=== PATIENT | female | born 1965 | race Caucasian/White ===

== ENCOUNTER → 2016-11-09 | Outpatient (CLI) | payer OTHER ==
--- NOTE | 2016-11-09 12:18 | MR ---
EXAMINATION TYPE: MR cervical spine wo con DATE OF EXAM: 11/09/2016 10:18 AM COMPARISON: 11/04/2014 HISTORY: cervicalgia Multiplanar MultiSpin echo imaging of the cervical spine was performed. Comparison: none C2-C3: No evidence for degenerative disc disease. No disc bulge/herniation or protrusion. No Canal stenosis. Foramina are patent bilaterally. C3-C4: No evidence for degenerative disc disease. No disc bulge/herniation or protrusion. No Canal stenosis. Foramina are patent bilaterally. C4-C5: Moderate disc desiccation noted. There is broad-based central disc protrusion or small herniat ion resultant compression of the thecal sac but no cord contact. There is mild canal stenosis and the re is mild left neural foraminal encroachment. C5-C6: Moderate to severe disc desiccation identified. Moderate disc bulging with encapsulating spur resulting in hard disc endplate complex. There is ventral CORD contact with moderate central stenosis . Bilateral foraminal encroachment left greater than right. C6-C7: Moderate disc desiccation noted. Mild subligamentous disc herniation effaces the ventral theca l sac. Borderline central stenosis noted. Bilateral left greater than right neural foraminal encroach ment. C7-T1: No evidence for degenerative disc disease. No disc bulge/herniation or protrusion. No Canal stenosis. Foramina are patent bilaterally. Cervical segments are intact. There is reversal of the normal cervical lordosis extending from C4 th rough C6 which can be seen with muscle spasticity. Mild increased signal within the cervical spinal c ord extending from C4 through C6 may reflect early compressive myelopathy. Craniovertebral junction r elationships are within normal limits. IMPRESSION: 1. Multilevel degenerative disc disease with disc bulging/herniation with encapsulating spur resultin g in multilevel central stenosis and foraminal encroachment. Early compressive myelopathy is not excl uded. Findings have progressed slightly in the interval.
== END | disposition home or self-care (01) ==
LOC: RADMRIMAIN 09:45
PROVIDERS: ATTEND Psychiatry & Neurology Neurology
DX: M50.30 Other cervical disc degeneration, unspecified cervical region (principal); M50.20 Other cervical disc displacement, unspecified cervical region; M48.02 Spinal stenosis, cervical region
CPT/HCPCS: 72141

== ENCOUNTER → 2016-11-10 | Outpatient (CLI) | payer OTHER ==
--- NOTE | 2016-11-10 10:44 | MR ---
EXAMINATION TYPE: MR lumbar spine wo con DATE OF EXAM: 11/10/2016 10:38 AM COMPARISON: NONE HISTORY: Lumbago TECHNIQUE: T1 and T2 axial and sagittal images of the lumbar spine are submitted. FINDINGS: There is no abnormal signal seen within the visualized spinal cord or paraspinal soft tissu es. Prominent extrarenal pelvis on the left. Cannot exclude a small gallstone. There is hypertrophic changes anteriorly at multiple levels. Mild disc desiccation at T12-L1 and L4-L5. At L1-2 there is no disc herniation or canal stenosis. No foraminal encroachment. At L2-3 there is facet arthropathy but no disc herniation or canal stenosis. No foraminal encroachmen t. At L3-4 there is moderate facet arthropathy with hypertrophic change of the ligamentum flavum. Mild c ircumferential disc bulging but no canal stenosis. Neural foramina remain patent. At L4-5 there is circumferential disc bulging with a more broad-based left paracentral and lateral pr otrusion with mild to moderate left foraminal encroachment and mild right foraminal encroachment. Lig amentum flavum hypertrophy and facet arthropathy contribute to mild to moderate canal stenosis. At L5-S1 there is no disc herniation or canal stenosis. Neural foramina patent. Facet arthropathy not ed. IMPRESSION: 1. At L4-5 there is circumferential disc bulging with a more broad-based left paracentral and lateral protrusion with mild to moderate left foraminal encroachment and mild right foraminal encroachment. Ligamentum flavum hypertrophy and facet arthropathy contribute to mild to moderate canal stenosis are a 2. Disc bulging facet arthropathy L3-4 with no canal stenosis or foraminal encroachment.
== END ==
LOC: RADMRIMAIN 09:47
PROVIDERS: ATTEND Psychiatry & Neurology Neurology
DX: M48.06 Spinal stenosis, lumbar region (principal); M99.73 Connective tissue and disc stenosis of intervertebral foramina of lumbar region; M51.26 Other intervertebral disc displacement, lumbar region; M46.86 Other specified inflammatory spondylopathies, lumbar region
CPT/HCPCS: 72148

== ENCOUNTER → 2017-11-30 | Outpatient (CLI) | payer OTHER ==
--- NOTE | 2017-11-30 15:25 | MR ---
"EXAMINATION TYPE: MR cervical spine wo con DATE OF EXAM: 11/30/2017 COMPARISON: NONE HISTORY: Cervicalgia TECHNIQUE: Multiplanar, multisequence images of the cervical spine were acquired. FINDINGS: There is grade 1 anterolisthesis of C3 on C4 and grade 1 retrolisthesis of C5 on C6. Additionally bon e marrow edema is noted within the C4 and C5 vertebral bodies with very minimal vertebral body height loss. Vertebral body height loss is estimated at less than 10% C4 and approximately 10% of C5. There is also grade 1 retrolisthesis of C6 on C7. Multilevel disc desiccation is seen. Posterior fossa is visualized portions is grossly unremarkable. C2-C3: There is a small central disc osteophyte complex without significant spinal canal stenosis or neural foraminal narrowing. C3-C4: There is a small central and left paracentral disc osteophyte complex minimally narrowing the ventral subarachnoid space and in combination with uncovertebral hypertrophy and facet arthropathy mi ldly narrowing the left neural foramen. Right neuroforamen is patent. C4-C5: There is a broad-based disc herniation seen centrally effacing the ventral subarachnoid space and abutting the ventral cervical cord creating mild spinal canal stenosis. Additionally uncovertebra l hypertrophy and facet arthropathy creates moderate left neural foraminal narrowing. Right neurofora men is patent. C5-C6: There is a small central disc herniation that extends into the left lateral neural foramen and lateral recess creating severe left neural foraminal narrowing and moderate spinal canal stenosis. T here is central abnormal spinal cord signal with volume loss suggesting myelomalacia as no cord expan ashley is seen. Additionally there is slight ligamentum flavum buckling with uncovertebral hypertrophy and facet arthropathy contributing to these findings. Right neuroforamen is patent. C6-C7: There is a right paracentral disc herniation, uncovertebral hypertrophy and facet arthropathy creating mild spinal canal stenosis, moderate right neural foraminal narrowing, and moderate left nida ral foraminal narrowing. Abnormal spinal cord signal is seen at this level without cord expansion to indicate edema. Therefore myelomalacia is suspected. Ligamentum flavum buckling is noted. C7-T1: Disc desiccation is seen without significant spinal canal stenosis or neural foraminal narrowi ng. Ligamentum flavum buckling is noted. IMPRESSION: 1. Bone marrow edema within the C4 and C5 vertebral bodies with slight vertebral body height loss at these levels (less than 10% and approximately 10% respectively). Findings indicate acute compression deformities. 2. Central disc herniation at C5-C6 extending into the left lateral neural foramen and lateral recess creating severe left neural foraminal narrowing and moderate spinal canal stenosis. Additionally the re is abnormal spinal cord signal at this level suggesting myelomalacia as there is no cord expansion . 3. Right paracentral disc herniation at C6-C7 creating mild spinal canal stenosis and moderate right neural foraminal narrowing. Abnormal spinal cord signal is also seen at this level suggesting myeloma lacia without cord expansion. 4. Multilevel degenerative disc disease resulting in variable degrees of neural foraminal narrowing a s described above. 5. Multilevel malalignment of the cervical spine with grade 1 anterolisthesis of C3 on C4, retrolisth esis of C5 on C6, and retrolisthesis of C6 on C7. A Yellow level critical message alert has been initiated for Georges Wellington MD via the [employer] | Critical Results System on 11/30/2017 3:23 PM. This message alert has been sent to Georges Wellington MD via the preferences provided by the clinician for the receipt of Radiology Critical Findings. [facility] [id number]."
== END | disposition home or self-care (01) ==
LOC: RADMRIMAIN 10:44
PROVIDERS: ATTEND Psychiatry & Neurology Neurology
DX: M48.02 Spinal stenosis, cervical region (principal); M99.71 Connective tissue and disc stenosis of intervertebral foramina of cervical region; M50.222 Other cervical disc displacement at C5-C6 level; M50.30 Other cervical disc degeneration, unspecified cervical region; M43.12 Spondylolisthesis, cervical region
CPT/HCPCS: 72141

== ENCOUNTER → 2020-10-04 | Outpatient (CLI) | payer OTHER ==
--- NOTE | 2020-10-04 14:57 | US ---
EXAMINATION TYPE: US venous doppler duplex LE DATE OF EXAM: 10/04/2020 2:14 PM COMPARISON: NONE CLINICAL HISTORY: M79.661 Pain in right lower leg,. No redness. No swelling. No hx of blood clots. Not on blood thinners. Left foot discoloration. SIDE PERFORMED: Bilateral TECHNIQUE: The lower extremity deep venous system is examined utilizing real time linear array sonog azam with graded compression, doppler sonography and color-flow sonography. VESSELS IMAGED: Common Femoral Vein Deep Femoral Vein Greater Saphenous Vein * Femoral Vein Popliteal Vein Small Saphenous Vein * Proximal Calf Veins (* superficial vessels) Right Leg: Negative for DVT Left Leg: Negative for DVT Grayscale, color doppler, spectral doppler imaging performed of the deep veins of the bilateral lower extremities. There is normal flow, compressibility, vascular waveforms. IMPRESSION: No ultrasound evidence for acute DVT in either lower extremity.
--- NOTE | 2020-10-04 15:04 | US ---
EXAMINATION TYPE: US carotid duplex BILAT DATE OF EXAM: 10/04/2020 COMPARISON: NONE CLINICAL HISTORY: M79.661 Pain in right lower leg,. no HTN. No TIA. EXAM MEASUREMENTS: RIGHT: Peak Systolic Velocity (PSV) cm/sec ----- Right CCA: 112.9 ----- Right ICA: 89.2 ----- Right ECA: 217.3 ICA/CCA ratio: 0.8 RIGHT: End Diastole cm/sec ----- Right CCA: 20.8 ----- Right ICA: 16.7 ----- Right ECA: 45.9 LEFT: Peak Systolic Velocity (PSV) cm/sec ----- Left CCA: 86.7 ----- Left ICA: 160.1 ----- Left ECA: 287.0 ICA/CCA ratio: 1.8 LEFT: End Diastole cm/sec ----- Left CCA: 18.0 ----- Left ICA: 36.9 ----- Left ECA: 34.6 VERTEBRALS (direction of flow): Right Vertebral: Antegrade Left Vertebral: Antegrade Rhythm: Arrhythmia Mild Plaque seen in left bulb abdi scale images. Elevated right mid CCA, left proximal ICA and bilat eral ECA velocities. IMPRESSION: Mild left-sided plaque. No hemodynamically significant stenosis are present in either in ternal carotid artery. Stenosis approaching 50% thought present on the left. Criteria for Assigning % of Stenosis / Diameter reduction (Estimation based on the indirect measurements of the internal carotid artery velocities (ICA PSV). 1. Normal (no stenosis)=ICA PSV < 125 cm/s: ratio < 2.0: ICA EDV<40 cm/s. 2. Less than 50% stenosis=ICA PSV < 125 cm/s: ratio < 2.0: ICA EDV<40 cm/s. 3. 50 to 69% stenosis=ICA PSV of 125 to 230 cm/s: ration 2.0 ? 4.0: ICA EDV 40-100 cm/s. 4. Greater than 70% stenosis to near occlusion= ICA PSV > 230 cm/s: ratio > 4.0: ICA EDV > 100 cm/s. 5. Near occlusion= ICA PSV velocities may be low or undetectable: variable ratio and ICA EDV. 6. Total occlusion=unable to detect flow.
--- NOTE | 2020-10-06 08:56 | P.ARTDOP ---
Arterial Doppler LOWER EXTREMITY ARTERIAL DOPPLER: DATE OF SERVICE: 10/04/2020 Reason for study: Right leg pain. Doppler waveforms: Multiphasic bilaterally throughout. Irregular amplitude and rhythm suggesting A. fib.. Pulse volume recording: []. Pressure gradients: None. Ankle-brachial indices: Greater than 1 bilaterally. Toe brachial indices: [] on the right, [] on the left Impression: Normal study.
== END | disposition home or self-care (01) ==
LOC: RADUSWWP 13:36
PROVIDERS: ATTEND Internal Medicine
DX: I65.22 Occlusion and stenosis of left carotid artery (principal); R22.43 Localized swelling, mass and lump, lower limb, bilateral; M79.661 Pain in right lower leg; M79.662 Pain in left lower leg
CPT/HCPCS: 93880; 93922; 93970